=== PATIENT | male | born 1955 | race Caucasian/White ===

== ENCOUNTER 2019-08-22 08:09 | Emergency (ER) | payer MEDICAID ==
[~2019-08-22] VITALS: Ht 167.6 cm; Wt 78.0 kg
[2019-08-22] MEDS ORDERED: ACETAMINOPHEN 325MG TABLET PO ONE (11:00)
[2019-08-22 12:13] LABS: *AMPHETAMINES SCREEN URINE PRESUMTIVE POSITIVE (NEGATIVE); *BARBITURATES SCREEN URINE NEGATIVE (NEGATIVE); *BENZODIAZEPINES SCREEN URINE NEGATIVE (NEGATIVE); *COCAINE SCREEN URINE NEGATIVE (NEGATIVE); METHADONE URINE SCREEN NEGATIVE (NEGATIVE); OPIATES URINE SCREEN NEGATIVE (NEGATIVE)
[2019-08-22 12:14] LABS: CANNABINOID URINE SCREEN NEGATIVE (NEGATIVE); PHENCYCLIDINE URINE SCREEN NEGATIVE (NEGATIVE)
[2019-08-22 14:20] VITALS: BP 139/79
== END 2019-08-22 15:00 | disposition home or self-care (01) ==
LOC: ER 08:09
DX: S93.492A Sprain of other ligament of left ankle, initial encounter (principal); S63.591A Other specified sprain of right wrist, initial encounter; V18.0XXA Pedal cycle driver injured in noncollision transport accident in nontraffic accident, initial encounter; Y93.55 Activity, bike riding; Y92.488 Other paved roadways as the place of occurrence of the external cause
CPT/HCPCS: 29125; 29515; 36415; 73110; 73610; 80305; 80320; 99284; G0480

== ENCOUNTER 2024-01-06 05:27 | Emergency (ER) | payer MEDICARE, MEDICAID ==
[~2024-01-06] VITALS: Ht 162.6 cm; Wt 50.0 kg
[~2024-01-06 05:27] MED LIST: AMI2 PO; ASPI-1160 PO; CEFT2FRO5 IV; DOCU-150 PO; FAMO20TA8 PO; FE300LUD PO; FURO40TA5 PO; GABA-529 PO; HALO0.5T PO; LEVO25TA7 PO; LIP40 PO; METO10TA3 PO; MIDO5TAB4 PO; NITR0.4T49 SL; PRAZ1CAP5 PO; VANJ5 PO; WARF-67 MT; WARF3TAB58 PO
[2024-01-06 06:20] LABS: HEMATOCRIT. 25.8 % (42.0-52.0); HEMOGLOBIN. 8.4 g/dL (14.0-18.0); MEAN CORPUSCULAR HEMOGLOBIN 28.8 pg (28.0-32.0); MEAN CORPUSCULAR HGB CONC 32.6 g/dL (31.0-37.0); MEAN CORPUSCULAR VOLUME 88.2 fL (80.0-94.0); MEAN PLATELET VOLUME 8.9 fl (7.4-10.4); PLATELET 239 x1000/uL (130-400); RED BLOOD CELL COUNT 2.93 mill/uL (4.7-6.1); RED CELL DISTRIBUTION WIDTH 20.8 % (11.6-14.6); WHITE BLOOD COUNT 11.4 x1000/uL (4.5-11.0)
[2024-01-06 06:21] LABS: CHLORIDE 109 mEq/L (98-107); POTASSIUM 4.4 mEq/L (3.5-5.1); SODIUM 142 mEq/L (136-145)
[2024-01-06 06:22] LABS: CALCIUM 8.8 mg/dL (8.7-10.4); CARBON DIOXIDE 25 mEq/L (21-32)
[2024-01-06 06:27] LABS: GLUCOSE 201 mg/dL (70-105); UREA NITROGEN BLOOD 46 mg/dL (9-23)
[2024-01-06 06:28] LABS: TROPONIN I HIGH SENSITIVITY 7 ng/L (3.0-53)
[2024-01-06] MEDS: ALBUTEROL (0.083%) 2.5MG/3ML NEB HHN STA (06:35)
[2024-01-06] MEDS: IPRATROPIUM BROMIDE (0.02%) 0.5MG/2.5ML NEB HHN STA (06:36)
[2024-01-06 06:38] VITALS: PULSE 94; RESP 16; O2SAT 100
[2024-01-06 06:44] LABS: DIFFERENTIAL COMMENT 1
[2024-01-06 07:28] LABS: CREATININE 1.7 mg/dL (0.6-1.3)
[2024-01-06 09:39] LABS: BG BASE EXCESS -5.8 mmol/L (-2.0-3.0); BG CARBOXYHEMOGLOBIN 0.2 % (0.5-1.5); BG DEOXYHEMOGLOBIN 1.9 % (0.0-5.0); BG FRACTION INSPIRED OXYGEN 100; BG HCO3 ACT 18.3 mmol/L (21.0-28.0); BG METHEMOGLOBIN 0.2 % (0.5-1.5); BG OXYGEN SATURATION 98.1 % (94.0-98.0); BG OXYHEMOGLOBIN 97.7 % (94.0-98.0); BG PO2 108.5 mmHg (83.0-108.0); BG SAMPLE SITE RIGHT BRACHIAL; BG TOTAL HEMOGLOBIN 8.9 g/dL (13.5-17.5); BG VENT MODE MASK - NRB
[2024-01-06 10:44] LABS: ANISOCYTOSIS 2+; PLATELET ESTIMATE NORMAL
[2024-01-06 11:00] VITALS: BP 115/51; PULSE 91; RESP 17; TEMP 36.83628; O2SAT 98
[2024-01-06] MEDS ORDERED: IOHEXOL-350 100 ML BOTTLE ONE (12:24)
== END 2024-01-06 11:32 | disposition short-term general hospital (02) ==
LOC: ER 05:27 → CANBEDREQ 10:52 → ER 11:32
DX: J96.01 Acute respiratory failure with hypoxia (principal); I10 Essential (primary) hypertension; E11.9 Type 2 diabetes mellitus without complications; R51.9 Headache, unspecified; Z79.899 Other long term (current) drug therapy; Z79.82 Long term (current) use of aspirin; Z86.39 Personal history of other endocrine, nutritional and metabolic disease; Z98.890 Other specified postprocedural states
CPT/HCPCS: 99291; 70496; 71045; 80048; 83880; 83605; 85025; 87040; 84484; 36415; 70498; 94640; 82805; 82375; 36600; 70450; Q9967